=== PATIENT | female | born 2000 | race African-American/Black ===

== ENCOUNTER 2022-07-17 12:10 | Outpatient (CLI) | payer BC, SELFPAY ==
--- NOTE | ~2022-07-17 | US_ITS ---
EXAMINATION: US OB transvaginal DATE: 07/17/2022 12:37 INDICATION: First trimester dating TECHNIQUE: Real-time pelvic transabdominal and transvaginal ultrasound was performed. COMPARISON: None. FINDINGS: The uterus measures 7.7 x 5 x 6.8 cm. There is an intrauterine gestational sac. A yolk sac is identified. The pole is not yet identified. The mean sac diameter measures 1.7 cm, which cor relates with an estimated gestational age of 6 weeks and 0 day(s) (+/-) 4 day(s). The right ovary measures 2.6 x 2.5 x 2.5 cm. The left ovary measures 2.9 x 2.5 x 1.7 cm. There is nor mal vascular flow in the ovaries. There is no free fluid in the pelvis. IMPRESSION: 1. Intrauterine gestational sac without visible pole, likely due to early . Estimated gestational age of 6 weeks and 0 day(s) (+/-) 4 day(s) and an estimated delivery date of 03/12/2023 b ased on mean sac diameter. Reviewed, dictated and finalized at location L. IMPRESSION: 1. Intrauterine gestational sac without visible pole, likely due to early . Estimated gestational age of 6 weeks and 0 day(s) (+/-) 4 day(s) an d an estimated delivery date of 03/12/2023 based on mean sac diameter.
== END 2022-07-17 12:11 ==
PROVIDERS: PCP Advanced Practice Midwife; Visit Provider Advanced Practice Midwife
DX: Z36.87 Encounter for antenatal screening for uncertain dates (principal); Z3A.01 Less than 8 weeks gestation of pregnancy
CPT/HCPCS: 76817

== ENCOUNTER 2022-10-23 17:45 | Outpatient (CLI) | payer BC, SELFPAY ==
[2022-10-23 18:48] LABS: Beta HCG Quantitative 13.14 mIU/ML
[2022-10-26 06:25] LABS: FSH 9.5 mIU/mL (***); LH 5.7 mIU/mL (***); Prolactin 10.2 ng/mL (***)
== END 2022-10-23 17:46 | disposition home or self-care (01) ==
PROVIDERS: PCP Advanced Practice Midwife; Visit Provider Student in an Organized Health Care Education/Training Program
DX: N91.2 Amenorrhea, unspecified (principal)
CPT/HCPCS: 36415; 83001; 83002; 84146; 84443; 84702

== ENCOUNTER 2022-10-25 08:21 | Outpatient (RCR) | payer BC, SELFPAY | END 2023-01-23 23:59 | disposition home or self-care (01) | LOC: ANHLAB 08:21 | PROVIDERS: PCP Advanced Practice Midwife; Visit Provider Student in an Organized Health Care Education/Training Program | DX: N91.2 Amenorrhea, unspecified (principal) | CPT/HCPCS: 36415; 84702 ==

== ENCOUNTER 2022-11-16 04:07 | Day surgery (SDC) | payer BC, SELFPAY ==
[2022-11-13 09:54] VITALS: BMI 34.1
--- NOTE | 2022-11-13 09:59 | PC.NURSE ---
Report to the Outpatient Waiting Room, entrance under the green pavilion located off [facility], at time 0600 on date 11/16/22. Planned Procedure Time: 0730. Time changes happen often and if your time is changed the preop area will call you the afternoon before. - You and your visitor will be asked to self-screen and do not enter if you have any COVID symptoms. - A mask is optional within the hospital at this time. Patients may have clear liquids (water, carbonated beverages, clear teas, apple juice) until 3 hours prior to surgery with a maximum of 20 ounces. - No food from midnight until time of surgery Take the following medications with a SIP of water the morning of surgery: N/A DO NOT STOP ANY OF YOUR OTHER PRESCRIPTION MEDICATIONS PRIOR TO SURGERY ?EXCEPT THE FOLLOWING Medications to discontinue per physician: N/A Date to take last dose: N/A Please no make-up, nail hebrew, hairspray, perfume, deodorant, or body powder the day of surgery. No jewelry (including any body piercings) or valuables the day of surgery, leave them at home. Please take a shower or bath the night before, or the morning of, surgery with an antibacterial soap. Wear comfortable, loose fitting clothing. - Jewelry must be removed prior to entering the operating room. Rings and piercings that are not removed may be cut off. - The hospital will not accept responsibility for valuables. - Please leave all valuables, including medications, at home the day of surgery. If you are going home after surgery, a licensed limousine driver must drive you home. - NO public transportation without another adult if you receive anesthesia. - We recommend that an adult stay with you for 24 hours following discharge. - We also recommend that you do not drive, make important decision, drink alcoholic beverages, or take any drugs that were not prescribed by your health care provider for at least 24 hours after your discharge time. Follow any additional instructions given to you from your surgeon. If you or anyone in your household have experienced Covid symptoms in the past week, please notify your surgeon or the nurse liaison at the phone number below for possible testing. Telephone instructions given to PT - BRANDYN MONTILLA and asked if any additional questions and then verbalized understanding. Patient advised to call surgeon office or pre surgery nurse liaison [phone] if any additional questions.
[2022-11-16 06:22] VITALS: BP 149/98; PULSE 77; RESP 16; TEMP 36.8; O2SAT 100
--- NOTE | 2022-11-16 07:05 | PM.IMHP ---
H&P: HPI History of Present Illness Date/Time: 11/16/22 07:05 Chief Complaint: retained products of conception Narrative: 22 yo female who presents for D&C for retained products of conception. Pt incidentally became in July. Pt had an elective via misoprostol. Pt states she had bleeding after misoprostol and Beta HCG levels were tending down. Pt never followed up to trend beta to zero. Pt never had spontaneous return of menses. Pt states she took 3 UPT at home which were positive. Pt had has inappropriately rising beta hcg. pelvic US showed a 4cm endometrium with irregular appearance. Review of Systems Cardiovascular: Cardiovascular: Denies chest pain, Denies leg edema, Denies palpitations, Denies dyspnea and Denies dyspnea on exertion Respiratory: Respiratory: Denies cough, Denies dyspnea and Denies dyspnea on exertion Gastrointestinal: Gastrointestinal: Denies abdominal pain, Denies constipation, Denies diarrhea, Denies nausea and Denies vomiting Genitourinary: Genitourinary: Denies hematuria, Denies urinary frequency, Denies dysuria, Denies pelvic pain, Denies urinary incontinence and Denies vaginal discharge Neurologic: Reports system reviewed and no additional complaints, except as documented Psychiatric: Psychiatric: Reports no additional psychiatric complaints Endocrine: Endocrine: Denies palpitations [facility] Social History Social History (Updated 10/23/22 @ 13:38 by Dinorah Mukherjee [facility]) Smoking status: Never smoker Alcohol intake: current Alcohol use details: SOCIALLY WHEN NOT Substance use: current Substance use type: marijuana Lack of Transportation: No Lack of Food: Never True Current Housing: I Do Not Have Housing Concerned About Future Housing: No Difficulty Paying Gas/Electric Bills: No Difficulty Paying for Meds: No Currently Unemployed: No Education: High School Diploma/GED Difficulty w/ Childcare or Family Care: No Living arrangements: with friend(s) Additional living arrangements comments: BOYFRIEND Occupation/Education: occupation Gender identity (if verbalized by the patient): Female Spiritual care concerns: No Meds Home Medications and Allergies Home Medications Medication Instructions Recorded Confirmed Type diphenhydramine HCl 25 mg tablet 25 mg PO HS PRN Insomnia 11/16/22 11/16/22 History (Allergy (diphenhydramine)) Allergies Allergy/AdvReac Type Severity Reaction Status Date / Time Penicillins Allergy Intermediate Hives Verified 11/16/22 06:38 Vital Signs Vital Signs - 24 hr 11/16/22 06:22 Temperature 98.2 F Pulse Rate 77 Respiratory Rate 16 Blood Pressure 149/98 H Pulse Oximetry 100 Oxygen Delivery Room Air Exam Const: General: no acute distress Eyes: EOM: EOMs intact bilaterally Neck: Neck: supple Thyroid: thyroid normal Chest: Breast/axilla inspection: normal inspection of the breasts Breast/axilla palpation: normal palpation of the breasts, normal palpation of the axillae and no axillary lymphadenopathy Resp: Effort & Inspection: normal respiratory effort Auscultation: clear to auscultation bilaterally Cardio: Rate: regular rate Rhythm: regular rhythm GI: Inspection: non-distended GI Palp: Yes Soft to palpation, No Tenderness to palpation present (GI) and No Guarding due to palpation present (GI) Auscultation: normal bowel sounds : General: No bladder normal to palpation External Female Exam: normal external appearance Speculum Exam - Vagina: normal vaginal discharge and No vaginal bleeding Speculum Exam - Cervix: nontender Bimanual exam- vagina & uterus: No bladder normal to palpation and No Cervical tenderness present OB/external & speculum: No vaginal bleeding Skin: General skin exam: normal color and no rashes or lesions noted Neuro: Cognition (Neuro): normal cognition Speech: normal speech Extrem: General: normal to inspection and no edema Psych: Mental Statu
--- NOTE | 2022-11-16 07:11 | WPDHPUPDATE1 ---
History and Physical Update Update Date/Time: 11/16/22 07:11 History and Physical has been reviewed, including an updated exam of the patient. There are NO changes in the patient's condition. Risks, benefits, and alternatives have been discussed and questions answered. Patient agrees to proceed with procedure.
--- NOTE | 2022-11-16 07:22 | WPDANESEPP ---
Anes - Eval Pre Procedure Procedure: Operation Date: 11/16/22 07:30 Proposed Procedures p Suction Dilation and Curettage - Stevie Bourgeois MD Date/Time: 11/16/22 07:22 Surgeon: Christelle Pre Op Diagnosis: Missed Ab Patient Data Age: 22 Gender: F Height: 1.68 m Weight: 96 kg Last Vital Signs Temp 98.2 F 11/16/22 06:22 Pulse 77 11/16/22 06:22 Resp 16 11/16/22 06:22 BP 149/98 H 11/16/22 06:22 Pulse Ox 100 11/16/22 06:22 O2 Del Method Room Air 11/16/22 06:22 Allergies Allergy/AdvReac Type Severity Reaction Status Date / Time Penicillins Allergy Intermediate Hives Verified 11/16/22 06:38 Home Medications Medication Instructions Recorded Confirmed Type diphenhydramine HCl 25 mg tablet 25 mg PO HS PRN Insomnia 11/16/22 11/16/22 History (Allergy (diphenhydramine)) Patient hx anesthesia problems: none Family hx anesthesia problems: none Results Review: All pre-operative results and documents have been reviewed as part of the pre-operative evaluation. [facility] Past Medical History Medical History Anxiety Eczema Obesity Retained products of conception following Social History Social History Smoking status: Never smoker Alcohol intake: current Alcohol use details: SOCIALLY WHEN NOT Substance use: current Substance use type: marijuana Lack of Transportation: No Lack of Food: Never True Current Housing: I Do Not Have Housing Concerned About Future Housing: No Difficulty Paying Gas/Electric Bills: No Difficulty Paying for Meds: No Currently Unemployed: No Education: High School Diploma/GED Difficulty w/ Childcare or Family Care: No Living arrangements: with friend(s) Additional living arrangements comments: BOYFRIEND Occupation/Education: occupation Gender identity (if verbalized by the patient): Female Spiritual care concerns: No Exam Day of Procedure 11/16/22 07:22 Patient weight: morbidly obese Heart: regular rate and rhythm Lungs: clear to auscultation Airway: Mallampati scale class 1 Neurological: alert and oriented
--- NOTE | 2022-11-16 07:26 | P.PNAN_ITS ---
Anes - Eval Final PreProcedure Day of Procedure 11/16/22 07:26 Patient weight: obese Heart: regular rate and rhythm Lungs: clear to auscultation Airway: Mallampati scale class II Neurological: alert and oriented Last oral intake: >/= 8 hours ASA classification: II Emergent: no Anesthetic plan: proceed Anesthesia type and monitoring: general GIVS and standard monitoring Results Review: All pre-operative results and documents have been reviewed as part of the pre- operative evaluation. Informed Consent: The patient's anesthetic plan and its attendant risks and benefits were discussed with the patient/family/POA. Questions were solicited and answers provided to the satisfaction of the patient/family/POA.
[2022-11-16 07:27] LABS: Hematocrit 40.3 % (37.0-47.0); Hemoglobin 13.4 g/dL (12.0-15.0)
[2022-11-16] MEDS: ACETAMINOPHEN 500 MG TABLET 1000 MG PO (07:27)
[2022-11-16] MEDS: LACTATED RINGERS 1,000 ML 30 ML IV CONT (07:27)
[2022-11-16] MEDS: LIDOCAINE HCL 1% LOCAL INJ 20 ML VIAL 8 ML INFILTRATE (07:50)
[2022-11-16 08:01] VITALS: BP 111/73; PULSE 71; RESP 12; O2SAT 97
--- NOTE | 2022-11-16 08:03 | SUR.OPER ---
Spoke with lab in regards to POC specimen for chromosome analysis. It is okay to flush tubing with saline to get remainder of product into canister. Specimen and chromosome analysis paperwork sent to lab per GALILEO Pulido.
--- NOTE | 2022-11-16 08:16 | W.PM.PROC2 ---
Procedure Note - Detailed Date of Procedure 11/16/22 Pre-op Diagnosis reatined products of conception Post-op Diagnosis Same Procedure Performed Suction Dilation & curettage Surgeon Stevie Bourgeois MD Anesthesia General Indications possible retained products of conception Findings intrauterine products of conception Description of Procedure The patient was taken to the operating room after a missed had been noted on on transvaginal ultrasound. The risks, benefits and alternatives of the procedure were reviewed with the patient and informed consent was obtained. The patient was taken to the OR and anesthesia was noted to be adequate. The patient was placed in the dorsolithotomy position. Pelvic exam was performed with findings noted above. The patient was prepped and draped in the usual sterile fashion. Sterile speculum was placed in the vagina and the cervix was grasped with a tenaculum. The cervix was dilated further to allow for passage of a 8 mm suction curette. The 8 mm suction curette was gently advanced to the fundus, suction was activated, and the tip was rotated while being withdrawn to clear the uterus of products. This suction process was repeated 3 additional times due to the quantity of material in the uterus. The sharp curette was introduced and advanced to the fundus to remove any remaining products. The suction curette was reintroduced one final time to ensure all products had been removed. The tenaculum was removed. Good hemostasis was noted. Instrument, sponge, and sharp counts were correct. Patient tolerated the procedure well and was taken to the recovery room in stable condition. Estimated Blood Loss 10 Urine Output 250 Drains No Packing No Pathology Yes (products of conception) Complications No immediate complications Condition Stable Disposition PACU [facility] Billing Surgery - Charge Forward: Surgery Billing
[2022-11-16 08:30] VITALS: BP 118/74; PULSE 87; RESP 16; O2SAT 100
[2022-11-16] MEDS: DOXYCYCLINE HYCLATE 100 MG TABLET 200 MG PO (08:50)
[2022-11-16 09:00] VITALS: BP 154/98; PULSE 74; RESP 14
[2022-11-16 09:30] VITALS: BP 156/104; PULSE 58; RESP 14
[2022-11-16 10:00] VITALS: BP 136/89; PULSE 81; RESP 14
== END 2022-11-16 10:28 | disposition home or self-care (01) ==
PROVIDERS: Visit Provider Student in an Organized Health Care Education/Training Program
PROC: (CPT 59812; principal; 2022-11-16 07:30)
DX: O07.4 Failed attempted termination of pregnancy without complication (principal); F12.90 Cannabis use, unspecified, uncomplicated
CPT/HCPCS: 59812; 36415; 85014; 85018; 85461; 86850; 86900; 86901; 88233; 88264; 88305; A9270; J2250; J2405; J2704; J3010; J7120